=== PATIENT | female | born 1960 | race Caucasian/White ===

== ENCOUNTER 2023-03-31 15:19 | Emergency (ER) | payer OTHER, SELFPAY ==
--- NOTE | ~2023-03-31 | CT_ITS ---
EXAMINATION: CTA chest PE protocol DATE: 03/31/2023 17:01 INDICATION: Shortness of breath. The venous thrombosis. TECHNIQUE: Computed tomography angiography (CTA) of the chest was performed with 100 mL Omnipaque-350 intravenous contrast timed to evaluate the pulmonary arteries. Coronal maximum intensity projection 3D-reconstructions were created by the technologist. Automated exposure control and iterative reconst ruction technique were employed. Exam dose: 725.46 mGy-cm total exam DLP. COMPARISON: 03/27/2023 AP and lateral chest FINDINGS: There is diagnostic contrast enhancement of the pulmonary arteries and no evidence of pulmo nary embolism. There is an anterior mediastinal mass centered left of midline, measuring up to 2.4 cm anteroposterio r, 3.4 cm transverse and 4.9 cm vertical dimension. There is another adjacent middle mediastinal mass at the posterior margin of the anterior mediastinal mass, up to 2.1 cm with, 2.5 cm anteroposterior dimension and 3.7 cm vertical dimension. No other hilar or mediastinal mass lesion or lymphadenopathy is noted. No thoracic aortic aneurysm or dissection. Cardiomegaly. Coronary artery calcification. No pericardial or pleural effusion. Minimal dependent right lower lobe atelectasis. More prominent atelectasis is noted at the left lower lobe. Normal morphology of the adrenal glands. Cholelithiasis is suspected. IMPRESSION: Continuous anterior and middle mediastinal masses; differential diagnosis includes thymo ma, teratoma, ectopic thyroid tissue, lymphoma. Cardiomegaly No evidence of pulmonary embolism Suspected cholelithiasis Reviewed, dictated and finalized at [facility]. Reviewed, dictated and finalized at [facility] TECHNICAL STAFF IMPRESSION: Continuous anterior and middle mediastinal masses; differential di agnosis includes thymoma, teratoma, ectopic thyroid tissue, lymphoma. Cardiomegaly No evidence of pulmonary embolism Suspected cholelithiasis
--- NOTE | ~2023-03-31 | XR_ITS ---
XR chest 2V DATE: 03/31/2023 16:12 INDICATION: Chest pain for 40 minutes. Atrial fibrillation. TECHNIQUE: AP and lateral views COMPARISON: None FINDINGS: Mild cardiomegaly. Aortic arch calcification, mild aortic unfolding. No hilar or mediastinal enlargement. Mild discoid atelectasis or scarring at the lung bases. The lungs otherwise appear clear. No pleural effusion or pulmonary laceration congestion or pneumothorax is detected. IMPRESSION: Cardiomegaly, aortic atherosclerosis Mild discoid atelectasis or scarring at the lung bases Reviewed, dictated and finalized at [facility] [employer]
[2023-03-31 15:24] VITALS: BP 154/66; PULSE 83; RESP 18; TEMP 36.6; O2SAT 100
--- NOTE | 2023-03-31 15:24 | ECG_ITS ---
Measurements Intervals [place] Rate: 77 P: -83 AL: 135 QRS: -24 QRSD: 85 T: 20 QT: 384 QTc: 435 Interpretive Statements SINUS RHYTHM BORDERLINE R WAVE PROGRESSION, ANTERIOR LEADS BORDERLINE T WAVE ABNORMALITY- ANTERIOR LEADS BASELINE ARTIFACT- I, II, AVR, AVL, V6 BORDERLINE ECG NO PREVIOUS ECG AVAILABLE FOR COMPARISON Electronically Signed On 03-31-2023 15:45:43 PROFESSOR OF COUNSELING by Gabriel Leung D.O.
[2023-03-31 16:04] LABS: Basophils Absolute Auto 0.1 K/mm3 (0.0-0.1); Basophils Percent Auto 1.2 % (0.2-1.2); Eosinophils Absolute Auto 0.1 K/mm3 (0-0.3); Eosinophils Percent Auto 1.6 % (0-4.4); Hematocrit 38.6 % (37.0-47.0); Hemoglobin 12.2 g/dL (12.0-15.0); Immature Granulocyte Absolute 0.02 K/mm3 (0.00-0.031); Immature Granulocyte Percent A 0.4 % (0-0.5); Lymphocytes Absolute Auto 1.16 K/mm3 (0.9-3.2); Mean Corpuscular HGB Conc 31.6 g/dl (32-36); Mean Corpuscular Hemoglobin 29.7 pg (26-34); Mean Corpuscular Volume 93.9 fl (80-100); Mean Platelet Volume 9.9 fl (7.4-10.4); Monocytes Absolute Auto 0.4 K/mm3 (0.1-0.6); Monocytes Percent Auto 8.5 % (2.6-8.5); Neutrophils Absolute Auto 3.3 K/mm3 (1.3-6.7); Neutrophils Percent Auto 65.3 % (45.5-73.1); Platelet Count Result 164 k/mm3 (150-375); Red Blood Count 4.11 M/mm3 (4.2-5.4); Red Cell Distribution Width 14.6 % (11.5-14.5); White Blood Count 5.1 K/mm3 (4.5-10.0)
[2023-03-31 16:15] LABS: Alanine Aminotransferase 26 U/L (6-35); Albumin Level 3.4 g/dL (3.5-5.1); Alkaline Phosphatase 95 U/L (38-126); Anion Gap 10 mmol/L (8-16); Aspartate Amino Transferase 44 U/L (14-36); Bilirubin,Total 0.5 mg/dL (0.2-1.3); Blood Urea Nitrogen 4 mg/dL (7-17); Calcium 8.7 mg/dL (8.4-10.2); Carbon Dioxide 24 mmol/L (22-30); Chloride 106 mmol/L (98-107); Estimated CRCL calculation 95 ml/min; Estimated Glomerular Filt Rate > 60; Glucose 110 mg/dL (65-110); Lipase 93 U/L (23-300); Potassium 3.6 mmol/L (3.4-5.0); Sodium 140 mmol/L (137-145)
[2023-03-31 16:16] LABS: INR 1.1; Partial Thromboplastin Time 26.8 SECONDS (22.3-36.8); Prothrombin Time 14.3 Seconds (11.1-14.7)
[2023-03-31 16:26] LABS: Troponin I < 0.012 ng/mL (0.000-0.034)
[2023-03-31 19:01] LABS: Troponin I < 0.012 ng/mL (0.000-0.034)
--- NOTE | 2023-03-31 19:01 | ED.CHESTPAIN ---
HPI - Chest Pain General Chief Complaint: Chest Pain Stated Complaint: chest pain Time Seen by Provider: 03/31/23 16:05 History of Present Illness HPI narrative: 62-year-old female presenting to the emergency department for evaluation of 1 minute of chest pain. Patient was visiting her father senior living when she had what she felt was a panic attack. Patient states she was distressed after seeing her father after she saw how poorly he looked. Patient reports that she had present 1 minute of symptoms but now does feel improved. Patient reports pressure 3 weeks ago she was diagnosed with a DVT and pulmonary embolism. Patient was started on Eliquis and patient has been taking it. Upon arrival to the emergency department patient denies any current chest pain. Patient denies any previous history of MD. Related Data Allergies Allergy/AdvReac Type Severity Reaction Status Date / Time diclofenac [From Voltaren] Allergy Hives Verified 03/31/23 15:43 tramadol AdvReac Dizziness Verified 03/31/23 15:43 Review of Systems Review of Systems: All systems reviewed & are unremarkable except as noted in HPI and below Exam Narrative: APPEARANCE: Well appearing, no pain, no distress, well-nourished. HEAD: normocephalic, atraumatic. EYES: PERRLA/EOMI, conjunctivae clear. NOSE: Normal no drainage EARS:TMS clear with good light reflex. THROAT: Pharynx clear, no exudate. NECK: Supple. No adenopathy, no masses. RESPIRATORY: Airway patent, respirations nonlabored. Clear to auscultation bilaterally, no rales, rhonchi, wheezing. CARDIOVASCULAR: Regular rate and rhythm without murmurs rubs or gallops. ABDOMINAL: Soft, nontender, nondistended, normal bowel sounds MUSCULOSKELETAL: Moves all extremities. Strength/ROM intact, No edema, No calf tenderness. NEURO: Alert. Cranial nerves II through XII intact. Good gait. Good coordination SKIN: Warm, dry. Normal Color Course Course Emergency Course: 62-year-old female presents emergency department for evaluation chest pain. Patient does have a prior history of PE and DVT. CTA PE was ordered to rule out acute worsening of pulmonary embolism. Patient has no current pulmonary embolism. CT scan did show a possible mediastinal mass and patient states that this was seen previously and she is scheduled to have follow-up for this. Patient was afebrile with no leukocytosis stable hemoglobin. Patient has a normal CMP and patient had negative serial troponins. Patient was updated of the results of her workup the patient was comfortable the plan for discharge and close follow-up Vital Signs Vital signs: Vital Signs Temperature 97.8 F 03/31/23 15:24 Pulse Rate 83 03/31/23 15:24 Respiratory Rate 18 03/31/23 15:24 Blood Pressure 154/66 H 03/31/23 15:24 Pulse Oximetry 100 03/31/23 15:24 Oxygen Delivery Room Air 03/31/23 15:24 Temperature 97.8 F 03/31/23 15:24 Pulse Rate 82 03/31/23 19:30 Respiratory Rate 17 03/31/23 19:30 Blood Pressure 157/73 H 03/31/23 19:30 Pulse Oximetry 96 03/31/23 19:30 Oxygen Delivery Room Air 03/31/23 15:24 MDM - Chest Pain Differential Diagnosis Differential diagnosis: Likely stable angina, unstable angina pectoris, atypical chest pain, costochondritis and chest pain Medical Records Data Attestation: I reviewed the patient's medical records. Lab Data Attestation: I reviewed the patient's lab results. 03/31/23 15:49 03/31/23 15:49 Labs: Lab Results 03/31/23 03/31/23 03/31/23 Range/Units 15:49 18:33 19:25 WBC 5.1 (4.5-10.0) K/mm3 RBC 4.11 L (4.2-5.4) M/mm3 Hgb 12.2 (12.0-15.0) g/dL Hct 38.6 (37.0-47.0) % MCV 93.9 (80-100) fl MCH 29.7 (26-34) pg MCHC 31.6 L (32-36) g/dl RDW 14.6 H (11.5-14.5) % Plt Count 164 (150-375) k/mm3 MPV 9.9 (7.4-10.4) fl Immature Gran % (Auto) 0.4 (0-0.5) % Neut % (Auto) 65.3 (45.5-73.1) % Lymph % (Auto) 23
[2023-03-31 19:27] LABS: Glucose Point of Care 97 mg/dl (65-105)
--- NOTE | 2023-03-31 19:27 | PC.NURSE ---
This RN went into room to discharge patient and she stated I don't feel too good. Can I speak with the doctor again. This RN informed ERP and he went to speak with patient. VORB to give patient something to eat and check BG. Patients bedside glucose is 97. Patient also given a sandwich and a drink.
[2023-03-31 19:30] VITALS: BP 157/73; PULSE 82; RESP 17; O2SAT 96
== END 2023-03-31 19:44 | disposition home or self-care (01) ==
PROVIDERS: Emergency Medicine; Emergency Provider Emergency Medicine
DX: R07.9 Chest pain, unspecified (principal); Z86.718 Personal history of other venous thrombosis and embolism; Z86.711 Personal history of pulmonary embolism; Z79.01 Long term (current) use of anticoagulants; R94.31 Abnormal electrocardiogram [ECG] [EKG]; I51.7 Cardiomegaly; J98.59 Other diseases of mediastinum, not elsewhere classified
CPT/HCPCS: 36415; 71046; 71275; 80053; 82948; 83690; 84484; 85025; 85610; 85730; 93005; 99284; Q9967